=== PATIENT | female | born 1990 | race African-American/Black ===

== ENCOUNTER 2021-01-14 15:10 | Emergency (ER) | payer SELFPAY ==
[~2021-01-14] VITALS: Ht 162.6 cm; Wt 72.1 kg
[2021-01-14] MEDS ORDERED: KETOROLAC TROMETHAMINE 30 MG/ML VIAL IM STA (16:02)
[2021-01-14] MEDS ORDERED: KETOROLAC TROMETHAMINE 30 MG/ML VIAL ONE (16:26)
[2021-01-14 16:54] VITALS: BP 127/70
== END 2021-01-14 16:57 | disposition home or self-care (01) ==
LOC: FSED 16:05
DX: R10.30 Lower abdominal pain, unspecified (principal); N93.9 Abnormal uterine and vaginal bleeding, unspecified; N30.00 Acute cystitis without hematuria
CPT/HCPCS: 81025; 99283; J1885

== ENCOUNTER 2021-10-18 11:30 | Emergency (ER) | payer OTHER ==
[~2021-10-18] VITALS: Ht 162.6 cm; Wt 68.0 kg
[2021-10-18] MEDS ORDERED: IBUPROFEN 600 MG TAB PO STA (11:48)
[2021-10-18] MEDS ORDERED: IBUPROFEN600 MG PO (13:05)
== END 2021-10-18 13:18 | disposition home or self-care (01) ==
LOC: ER 11:32
DX: M20.012 Mallet finger of left finger(s) (principal); S00.83XA Contusion of other part of head, initial encounter; M25.531 Pain in right wrist; Y04.0XXA Assault by unarmed brawl or fight, initial encounter; Y92.89 Other specified places as the place of occurrence of the external cause
CPT/HCPCS: 70486; 99284